=== PATIENT | male | born 1950 | race African-American/Black ===

== ENCOUNTER 2020-03-11 13:05 | Emergency (ER) | payer MEDICARE, MEDICAID ==
[~2020-03-11] VITALS: Ht 175.3 cm; Wt 68.1 kg
[~2020-03-11 13:05] MED LIST: ACET325T9 PO; AMLO2.5T2 PO; CHOL100013 PO; HYDR-2761 PO; ONDA4TAB7 PO; WARF-31 PO
[2020-03-11 14:01] VITALS: BP 186/81
--- NOTE | 2020-03-11 14:53 | RAD ---
HIP RIGHT 2V WITH PELVIS 03/11/2020 12:00 AM INDICATION: Right hip pain COMPARISON: Bilateral hip radiograph 12/13/2019 TECHNIQUE: AP view the pelvis and 2 dedicated views the right hip are provided. FINDINGS/ IMPRESSION: 1. There is advanced joint space narrowing involving the superolateral aspect of the right femoral acetabular joint with subcortical sclerosis and marginal osteophytosis compatible with advanced osteoarthrosis. There is mild height loss involving the femoral head, stable from 12/13/2019. Underlying avascular necrosis remains a differential consideration. 2. Left hip hardware is intact without evidence for hardware failure. 3. No acute fracture or dislocation is identified. Electronically signed by: Tiera Estrella MD (03/11/2020 2:50 PM) [id number]
[2020-03-11] MEDS ORDERED: HYDR-3164 PO (15:32)
--- NOTE | 2020-03-11 15:32 | PHYS DOC ---
Past Medical History Past Medical History: Asthma, Hypertension Past Surgical History: Hip Replacement Additional Past Surgical Histo: LEFT HIP REPLACEMENT Smoking Status: Never Smoker Alcohol Use: None General Adult EDM: Chief Complaint: LOWER EXT PAIN HPI: HPI: Patient is a 70 year old male who presents to ER today for evaluation of right hip pain, denies any injury. Symptoms have been going on for more than 3 months. Patient's family want him to come here for steroid injection. Patient denies any swelling, no trouble breathing, no chest pain. Review of Systems: Review of Systems: Constitutional: Denies fever or chills. [] Eyes: Denies change in visual acuity. [] HENT: Denies nasal congestion or sore throat. [] Respiratory: Denies cough or shortness of breath. [] Cardiovascular: Denies chest pain or edema. [] GI: Denies abdominal pain, nausea, vomiting, bloody stools or diarrhea. [] : Denies dysuria. [] Musculoskeletal: Denies back pain. Positive for right hip pain. Integument: Denies rash. [] Neurologic: Denies headache, focal weakness or sensory changes. [] Endocrine: Denies polyuria or polydipsia. [] Lymphatic: Denies swollen glands. [] Psychiatric: Denies depression or anxiety. [] Heart Score: Risk Factors: Risk Factors: DM, Current or recent (<one month) smoker, HTN, HLP, family history of CAD, obesity. Risk Scores: Score 0 - 3: 2.5% MACE over next 6 weeks - Discharge Home Score 4 - 6: 20.3% MACE over next 6 weeks - Admit for Clinical Observation Score 7 - 10: 72.7% MACE over next 6 weeks - Early Invasive Strategies Allergies: Allergies: Allergies Coded Allergies Type Severity Reaction Last Updated Verified No Known Drug Allergies 03/11/20 No Physical Exam: PE: Constitutional: Well developed, well nourished, no acute distress, non-toxic appearance. [] HENT: Normocephalic, atraumatic, bilateral external ears normal, oropharynx moist, no oral exudates, nose normal. [] Eyes: PERRLA, EOMI, conjunctiva normal, no discharge. [] Neck: Normal range of motion, no tenderness, supple, no stridor. [] Cardiovascular:Heart rate regular rhythm, no murmur [] Lungs & Thorax: Bilateral breath sounds clear to auscultation [] Abdomen: Bowel sounds normal, soft, no tenderness, no masses, no pulsatile masses. [] Skin: Warm, dry, no erythema, no rash. [] Back: No tenderness, no CVA tenderness. [] Extremities: no cyanosis, no clubbing, ROM intact, no edema. Patient can move right hip without any problem. Right hip is tender to palpation. Neurologic: Alert and awake, , normal motor function, normal sensory function, no focal deficits noted. [] Psychologic: Affect normal, judgement normal, mood normal. [] Current Patient Data: Vital Signs: Vital Signs Date Time Temp Pulse Resp B/P (MAP) Pulse Ox O2 Delivery O2 Flow Rate FiO2 03/11/20 14:01 98.8 85 18 186/81 (116) 100 Room Air 98.8 EKG: EKG: [] Radiology/Procedures: Radiology/Procedures: [][facility] [address] [place] [address] IMAGING REPORT Signed PATIENT: NICOLETTE BOLAND ACCOUNT: [id number] : 1950 LOCATION: ER AGE: 70 SEX: M EXAM STATUS: DEP ER ORD. PHYSICIAN: REVA PADILLA DO REASON: RIGHT HIP PAIN PROCEDURE: HIP RIGHT 2V WITH PELVIS HIP RIGHT 2V WITH PELVIS 03/11/2020 12:00 AM INDICATION: Right hip pain COMPARISON: Bilateral hip radiograph 12/13/2019 TECHNIQUE: AP view the pelvis and 2 dedicated views the right hip are provided. FINDINGS/ IMPRESSION: 1. There is advanced joint space narrowing involving the superolateral aspect of the right femoral acetabular joint with subcortical sclerosis and marginal osteophytosis compatible with advanced osteoarthrosis. There is mild height loss involving the femoral head, stable from 12/13/2019. Underlying avascular necrosis remains a differential consideration. 2. Left hip hardware is intact without evidence for hardware failure. 3. No acute fracture or dislocation is identified. Electronically signed by: Neymar Haynes MD (03/11/2020 2:50 PM) [id number] DICTATED and SIGNED BY: NEYMAR HAYNES MD DATE: 03/11/20 2845 Course & Med Decision Making: Course & Med Decision Making Pertinent Labs and Imaging studies reviewed. (See chart for details) [] Sandy Disclaimer: Sandy Disclaimer: This electronic medical record was generated, in whole or in part, using a voice recognition dictation system. Departure Departure Impression: Primary Impression: Hip pain, right Additional Impression: Degenerative joint disease of right hip Disposition: HOME, SELF-CARE Condition: STABLE Referrals: CAMERON LU MD (PCP) MINDY SANDY II, MD please call this orthopedic surgeon for outpatient follow up . Patient Instructions: Arthritis, Degenerative-Brief, Hip Pain Additional Instructions: Thank you for visiting our Emergency Department. We appreciate you trusting us with your care. If any additional problems come up don't hesitate to return to visit us. Please follow up with your primary care provider so they can plan additional care if needed and know about the problem that you had. If symptoms worsen come back to the Emergency Department. Any concerning symptoms that start such as chest pain, shortness of air, weakness or numbness on one side of the body, running high fevers or any other concerning symptoms return to the ER. Scripts Hydrocodone/Apap 5-325 (NORCO 5-325 TABLET) 1 Each Tablet 1 TAB PO PRN Q6HRS PRN for PAIN, #15 TAB 0 Refills Prov: REVA PADILLA DO 03/11/20 REVA PADILLA DO March 11, 2020 15:32
== END 2020-03-11 15:53 | disposition home or self-care (01) ==
LOC: ER 13:05 → MERGE 13:05 → ER 15:53
DX: M16.11 Unilateral primary osteoarthritis, right hip (principal); M47.9 Spondylosis, unspecified; M25.551 Pain in right hip; J45.909 Unspecified asthma, uncomplicated; I10 Essential (primary) hypertension; Z98.890 Other specified postprocedural states
CPT/HCPCS: 73502; 99284

== ENCOUNTER → 2021-03-16 | Outpatient (CLI) | payer MEDICARE, MEDICAID ==
[2018-11-14 15:00] VITALS: BP 131/71
[~2021-03-16] MED LIST changes: +ALBU2.5V8 INH; +ATOR20TA58 PO; +HYDR-3164 PO
[2021-03-16 09:09] LABS: BASO # 0.1 x10^3/uL (0.0-0.2); BASO % 1 % (0-3); EOS # 0.1 x10^3/uL (0.0-0.7); EOS % 3 % (0-3); HEMATOCRIT 39.6 % (39.0-53.0); HEMOGLOBIN 12.8 g/dL (13.0-17.5); LYMPH # 2.5 x10^3/uL (1.0-4.8); LYMPH % 42 % (24-48); MEAN CORPUSCULAR HEMOGLOBIN 29 pg (25-35); MEAN CORPUSCULAR HGB CONC 32 g/dL (31-37); MEAN CORPUSCULAR VOLUME 88 fL (79-100); MONO # 0.6 x10^3/uL (0.0-1.1); MONO % 9 % (0-9); NEUT # 2.7 x10^3/uL (1.8-7.7); NEUT % 45 % (31-73); PLATELET COUNT 166 x10^3/uL (140-400); RED BLOOD COUNT 4.48 x10^6/uL (4.30-5.70); RED CELL DISTRIBUTION WIDTH 14.6 % (11.5-14.5); WHITE BLOOD COUNT 5.9 x10^3/uL (4.0-11.0)
[2021-03-16 09:25] LABS: PROTHROMBIN TIME PATIENT 12.9 SEC (11.7-14.0)
[2021-03-16 09:27] LABS: CREATININE 1.2 mg/dL (0.7-1.3); GFR 72.6; POTASSIUM 4.4 mmol/L (3.5-5.1)
--- NOTE | 2021-03-16 13:25 | EKG ---
[facility] [address] [place] [address] Test Date: 2021-03-16 Test Time: 12:30:37 Pat Name: NICOLETTE BOLAND Department: Room: Gender: Neurosurgery Physician: J : 1950 Requested By: VIKKI CALIXTO Order Number: [id number] Reading MD: Reji Juan MD Measurements Intervals [place] Rate: 68 P: 56 DE: 168 QRS: 23 QRSD: 96 T: 28 QT: 434 QTc: 467 Interpretive Statements SINUS RHYTHM Electronically Signed On 03-17-2021 10:59:11 CDT by Reji Juan MD
--- NOTE | 2021-03-16 13:34 | RAD ---
Exam performed: 2 views of the chest. Indication: Reason: JOINT PREHAB CLASS-HX CAD)-PREOP EVALUATION FOR RIGHT HIP SURGERY / Spl. Instruct ions: / History: Date of Service: 03/16/2021 1:21 PM. Comparison : One view chest from 11/08/2018 Findings: PA and lateral radiographs of the chest reveal a normal cardiomediastinal contour. The lungs are poonam r. No pleural fluid is seen. The visualized osseous structures are unremarkable. Impression: No acute cardiopulmonary process seen. Electronically signed by: Lisa Harmon MD (03/16/2021 1:31 PM) [id number]
[2021-03-17 00:08] LABS: HEMOGLOBIN A1C 5.9 % (4.8-5.6)
== END ==
LOC: SURGPAT 13:28
PROVIDERS: ATTEND Orthopaedic Surgery
DX: Z01.818 Encounter for other preprocedural examination (principal); M16.11 Unilateral primary osteoarthritis, right hip
CPT/HCPCS: 36415; 71046; 80048; 82040; 82306; 83036; 85025; 85610; 85651; 85730; 87641; 93005

== ENCOUNTER → 2021-03-27 | Outpatient (CLI) | payer MEDICARE, MEDICAID ==
[2018-11-14 15:00] VITALS: BP 131/71
== END ==
LOC: LAB 09:57
PROVIDERS: ATTEND Orthopaedic Surgery
DX: Z01.812 Encounter for preprocedural laboratory examination (principal); Z20.828 Contact with and (suspected) exposure to other viral communicable diseases; M16.11 Unilateral primary osteoarthritis, right hip
CPT/HCPCS: U0003; U0005

== ENCOUNTER → 2021-05-15 | Outpatient (CLI) | payer MEDICARE, MEDICAID ==
[2021-04-03 08:45] VITALS: BP 136/61
--- NOTE | 2021-05-15 13:21 | RAD ---
EXAMINATION: US DPLX VENOUS EXTREMITY LOWER RT (LOWER EXTREMITY VENOUS ULTRASOUND) CLINICAL HISTORY: Right lower extremity pain TECHNIQUE: Sonographic grayscale images obtained of the right lower extremity deep venous system with color flow Doppler, compression, and augmentation techniques as indicated. Images obtained and stor ed in a permanent archive. COMPARISON: None FINDINGS: No evidence of absent flow or incompressibility within the common femoral vein, femoral vein, or popl iteal vein. Visualized calf veins appear patent on limited evaluation. IMPRESSION: No evidence of right lower extremity DVT. Electronically signed by: Ramana Lombardi DO (05/15/2021 1:19 PM) RON
== END ==
LOC: US 11:31
PROVIDERS: ATTEND Family Medicine
DX: R60.0 Localized edema (principal)
CPT/HCPCS: 93971